=== PATIENT | female | born 1950 | race Caucasian/White ===

== ENCOUNTER → 2017-01-19 | Outpatient (CLI) | payer MEDICARE ==
--- NOTE | 2017-01-19 16:37 | US ---
EXAMINATION TYPE: US pelvis complete transvag DATE OF EXAM: 01/19/2017 4:25 PM COMPARISON: NONE CLINICAL HISTORY: Post menopausal bleeding N95.0. Episode of vaginal bleeding 1 month ago, prior c-se ction TECHNIQUE: Transvaginal (TV) and Transabdominal (TA) Date of LMP: unknown EXAM MEASUREMENTS: Uterus: 11.4 x 4.5 x 5.4 cm Endometrial Stripe: 2.7 cm Right Ovary: 2.4 x 1.4 x 1.8 cm Left Ovary: 2.8 x 1.2 x 2.3 cm 1. Uterus: Anteverted heterogeneous 2. Endometrium: thickened, heterogeneous, anechoic areas noted within 3. Right Ovary: appears wnl 4. Left Ovary: appears wnl 5. Bilateral Adnexa: appears wnl 6. Posterior cul-de-sac: appears wnl Uterus is heterogeneous in appearance and anteverted in shape. Endometrium is heterogeneous and marke dly thickened up to 2.2 cm on transabdominal imaging and 2.7 cm on transvaginal imaging. No free flui d is seen in pelvic cul-de-sac. Small ovaries are identified bilaterally consistent with patient's postmenopausal age. No suspicious adnexal masses seen. IMPRESSION: Heterogeneous thickened endometrium in patient with postmenopausal bleeding, neoplasm nee ds to BE excluded, further investigation with endometrial biopsy is advised. A Yellow message has been communicated to Lloyd Boyer DO via the [employer] Critical Result system on 01/19/2017 4:35 PM, Message ID [id number].
== END ==
LOC: RADUSMAIN 15:38
PROVIDERS: ATTEND Obstetrics & Gynecology
DX: N95.0 Postmenopausal bleeding (principal); R93.8 Abnormal findings on diagnostic imaging of other specified body structures
CPT/HCPCS: 76830; 76856

== ENCOUNTER → 2017-02-26 | Outpatient (CLI) | payer MEDICARE ==
[2017-02-26 09:46] LABS: Basophils % (A) 1 %; CH 29.6; CHCM 32.8; Eosinophils # (A) 0.2 k/uL (0-0.7); Eosinophils % (A) 3 %; HCT 43.3 % (34.0-46.0); HDW 2.38; HGB 14.4 gm/dL (11.4-16.0); Luc # (Auto) 0.18; Luc % (Auto) 3; Lymphocytes # (A) 2.5 k/uL (1.0-4.8); Lymphocytes % (A) 34 %; MCH 30.2 pg (25.0-35.0); MCHC 33.3 g/dL (31.0-37.0); MCV 90.7 fL (80.0-100.0); Mean Platelet Volume 6.8; Monocytes # (A) 0.5 k/uL (0-1.0); Monocytes % (A) 6 %; Neutrophils # (A) 3.9 k/uL (1.3-7.7); Neutrophils % (A) 53 %; RBC 4.77 m/uL (3.80-5.40); RDW 13.4 % (11.5-15.5); WBC 7.3 k/uL (3.8-10.6); WBC (Perox) 7.18
== END | disposition home or self-care (01) ==
LOC: LABPAT 09:22
PROVIDERS: ATTEND Obstetrics & Gynecology
DX: Z01.818 Encounter for other preprocedural examination (principal)
CPT/HCPCS: 85025

== ENCOUNTER 2017-03-06 06:15 | Day surgery (SDC) | payer MEDICARE ==
[2017-02-28 15:13] VITALS: BMI 35.6
[~2017-03-06 06:15] MED LIST: DEXAMETHASONE SOD PHOSPHATE 10 MG/ML 1 ML VIAL IV ONE; LACTATED RINGERS 1,000 ML IV SCH; MIDAZOLAM 2 MG/2 ML VIAL IV PRN; ONDANSETRON 4 MG/2 ML VIAL IVP ONE; Pre Op ABX Message 1 EACH MISC MISCELLANE ONE
--- NOTE | 2017-03-06 07:32 | P.HPOB ---
History of Present Illness H&P Date: 03/06/17 Chief Complaint: Postmenopausal bleeding Tamiko is a 66-year-old female began having bleeding was a grossly thickened endometrium. Symptoms started last couple of months and been intermittent. Ultrasound done on 01/19/2017 which showed a thickened endometrium. She is therefore scheduled for a D&C with hysteroscopy. Risks/benefits/alternatives to this procedure were discussed with the patient in detail and all questions are answered for her prior to proceeding to the operating room. On physical exam this is an alert and oriented female whose HEENT is otherwise unremarkable. Heart regular, lungs clear, extremities without pain. Abdomen soft nontender positive bowel sounds are noted. Pelvic exam has been deferred to the operating room. Assessment postmenopausal bleeding. Plan D&C hysteroscopy. Past Medical History Past Medical History: Cancer, Hyperlipidemia, Hypertension Additional Past Medical History / Comment(s): hx colon cancer, hx skin cancer History of Any Multi-Drug Resistant Organisms: None Reported Past Surgical History: Bowel Resection, Section, Heart Catheterization With Stent Additional Past Surgical History / Comment(s): skin cancer removed from chest, one cardiac stent Past Anesthesia/Blood Transfusion Reactions: No Reported Reaction Date of Last Stent Placement:: 2009 Past Psychological History: No Psychological Hx Reported Smoking Status: Former smoker Past Alcohol Use History: None Reported Additional Past Alcohol Use History / Comment(s): quit smoking 2002, smoked for 20 yrs, 1 pack or less per day Past Drug Use History: None Reported - Past Family History Brother(s) Family Medical History: Cancer Medications and Allergies Home Medications Medication Instructions Recorded Confirmed Type Aspirin [Adult Low Dose Aspirin EC] 81 mg PO DAILY 02/28/17 02/28/17 History Atorvastatin Calcium [Lipitor] 10 mg PO HS 02/28/17 03/06/17 History Ergocalciferol (Vitamin D2) 50,000 unit PO MO 02/28/17 03/06/17 History [Vitamin D2] Isosorbide Mononitrate ER [Imdur] 15 mg PO DAILY 02/28/17 03/06/17 History Lisinopril [Zestril] 10 mg PO DAILY 02/28/17 03/06/17 History Allergies Allergy/AdvReac Type Severity Reaction Status Date / Time "pressur tape" AdvReac makes skin Uncoded 02/28/17 15:02 burn Exam Osteopathic Statement: *. No significant issues noted on an osteopathic structural exam other than those noted in the History and Physical/Consult. - Vital Signs Vital signs: Vital Signs Temp Pulse Resp BP Pulse Ox 03/06/17 06:41 97.8 F 79 16 190/87 97
[2017-03-06] MEDS ORDERED: LIDOCAINE 1% INJ 10MG/ML (20 ML MDV) ONE (07:41)
[2017-03-06] MEDS ORDERED: PROPOFOL 10 MG/ML 20 ML VIAL IV ONE (07:41)
[2017-03-06] MEDS ORDERED: KETOROLAC 30 MG/ML 1 ML VIAL ONE (07:41)
[2017-03-06] MEDS ORDERED: MIDAZOLAM 2 MG/2 ML VIAL ONE (07:41)
--- NOTE | 2017-03-06 08:12 | P.OP ---
Date of Procedure: 03/06/17 Preoperative Diagnosis: post menopausal bleeding Postoperative Diagnosis: same Procedure(s) Performed: D&C with hysteroscopy Anesthesia: ANNALISA Surgeon: Lloyd Boyer Estimated Blood Loss (ml): 5 Pathology: other (uterine curettings) Condition: stable Disposition: same day Operative Findings: large submucosal/mural fibroid. polyp noted and believed removed in total Description of Procedure: She was taken to the operating suite where a general anesthetic was found to be adequate. And draped in the normal sterile fashion and placed in the dorsal position. Initially a weighted speculum was inserted in the vagina and the anterior lip of the cervix was identified and grasped with a single-tooth tenaculum. Once this was accomplished cervix was dilated and camera was inserted. Large polyp was noted the endometrium as was a large fibroid. Fibroid was about 50% in the cavity but as she and I did not discuss resecting it was left alone. Camera was then removed and sharp curettings of the endometrium were obtained. Large polyp did come out during this process. We' ll await final tissue pathology. Once curettings were obtained camera was reinserted polyp was still noted to be there. All instruments were then removed. Sponge, lap, needle counts were all correct 2. And patient was taken to the recovery room in stable and satisfactory condition. Plan - Discharge Summary New Discharge Prescriptions: Ibuprofen [Motrin] 600 mg PO Q6HR PRN #30 tab PRN Reason: Pain Discharge Medication List Aspirin [Adult Low Dose Aspirin EC] 81 mg PO DAILY 02/28/17 [History] Atorvastatin Calcium [Lipitor] 10 mg PO HS 02/28/17 [History] Ergocalciferol (Vitamin D2) [Vitamin D2] 50,000 unit PO MO 02/28/17 [History] Isosorbide Mononitrate ER [Imdur] 15 mg PO DAILY 02/28/17 [History] Lisinopril [Zestril] 10 mg PO DAILY 02/28/17 [History] Ibuprofen [Motrin] 600 mg PO Q6HR PRN #30 tab 03/06/17 [Rx] Follow up Appointment(s)/Referral(s): Lloyd Boyer DO [Doctor of Osteopathic Medicine] - 2 Weeks Activity/Diet/Wound Care/Special Instructions: no heavy lifting, pelvic rest today. call for any high tempratures, heavy bleeding, or severe pain Discharge Disposition: HOME SELF-CARE
[2017-03-06 08:23] VITALS: TEMP 97
[2017-03-06] MEDS ORDERED: HYDROmorphone 1 MG/ML 1 ML SYRINGE IVP ONE ×2 (08:28→08:35)
[2017-03-06 09:33] VITALS: BP 138/72; PULSE 64; RESP 18
== END 2017-03-06 09:34 | disposition home or self-care (01) ==
LOC: OR 06:15
PROVIDERS: ATTEND Obstetrics & Gynecology
DX: N95.0 Postmenopausal bleeding (principal); N85.01 Benign endometrial hyperplasia; Z87.891 Personal history of nicotine dependence; I10 Essential (primary) hypertension; E78.5 Hyperlipidemia, unspecified; Z85.038 Personal history of other malignant neoplasm of large intestine; Z85.828 Personal history of other malignant neoplasm of skin; I25.10 Atherosclerotic heart disease of native coronary artery without angina pectoris; I25.2 Old myocardial infarction; Z95.5 Presence of coronary angioplasty implant and graft; Z79.82 Long term (current) use of aspirin; Z79.899 Other long term (current) drug therapy
CPT/HCPCS: 88305; 58558; J2250; J1100; J2405; J2001; J1885; J1170; J2704

== ENCOUNTER → 2017-06-14 | Outpatient (CLI) | payer MEDICARE ==
[2017-06-14 12:16] LABS: Basophils % (A) 0 %; CH 29.3; CHCM 34.2; Eosinophils # (A) 0.2 k/uL (0-0.7); Eosinophils % (A) 3 %; HCT 43.5 % (34.0-46.0); HDW 2.45; HGB 15.2 gm/dL (11.4-16.0); Luc # (Auto) 0.14; Luc % (Auto) 2; Lymphocytes # (A) 2.3 k/uL (1.0-4.8); Lymphocytes % (A) 34 %; MCH 30.1 pg (25.0-35.0); MCV 86.1 fL (80.0-100.0); Mean Platelet Volume 7.3; Monocytes # (A) 0.3 k/uL (0-1.0); Monocytes % (A) 5 %; Neutrophils # (A) 3.6 k/uL (1.3-7.7); Neutrophils % (A) 56 %; RBC 5.06 m/uL (3.80-5.40); RDW 12.5 % (11.5-15.5); WBC 6.5 k/uL (3.8-10.6); WBC (Perox) 6.73
== END | disposition home or self-care (01) ==
LOC: LABPAT 11:28
PROVIDERS: ATTEND Obstetrics & Gynecology
DX: Z01.812 Encounter for preprocedural laboratory examination (principal)
CPT/HCPCS: 85025

== ENCOUNTER 2017-06-26 06:22 | Day surgery (SDC) | payer MEDICARE ==
[2017-06-19 10:09] VITALS: BMI 36.6
[~2017-06-26 06:22] MED LIST changes: +HYDROmorphone 1 MG/ML 1 ML SYRINGE IVP PRN; +LIDOCAINE 1% 20 ML VIAL (10MG/ML) FOR IV START INTRADERMA PRN; -MIDAZOLAM 2 MG/2 ML VIAL IV PRN; +SCOPOLAMINE 1.5MG/72HR PATCH TRANSDERM ONE
[2017-06-26] MEDS ORDERED: LACTATED RINGERS 1,000 ML IV ONE (06:43)
--- NOTE | 2017-06-26 07:24 | P.HPOB ---
History of Present Illness H&P Date: 06/26/17 Chief Complaint: Simple hyperplasia Tamiko is a 14-year-old female who had simple hyperplasia. She was treated with Provera for the last 3 months and is here for rebiopsy to verify resolution. Risks/benefits discussed with patient in detail and all questions were answered for her prior to proceeding to the operative room. On physical exam vital signs are stable and afebrile. Heart regular, lungs clear, extremities without pain. Pelvic exams unremarkable. Assessment simple hyperplasia. Plan D&C Past Medical History Past Medical History: Hyperlipidemia, Hypertension History of Any Multi-Drug Resistant Organisms: None Reported Past Surgical History: Bowel Resection, Heart Catheterization With Stent Additional Past Surgical History / Comment(s): d&c Past Anesthesia/Blood Transfusion Reactions: No Reported Reaction Date of Last Stent Placement:: 2009 Smoking Status: Former smoker - Past Family History Mother Family Medical History: No Reported History Medications and Allergies Home Medications Medication Instructions Recorded Confirmed Type Aspirin [Adult Low Dose Aspirin EC] 81 mg PO DAILY 02/28/17 06/19/17 History Atorvastatin Calcium [Lipitor] 10 mg PO HS 02/28/17 06/19/17 History Ergocalciferol (Vitamin D2) 50,000 unit PO MO 02/28/17 06/19/17 History [Vitamin D2] Isosorbide Mononitrate ER [Imdur] 15 mg PO DAILY 02/28/17 06/19/17 History Lisinopril [Zestril] 10 mg PO DAILY 02/28/17 06/19/17 History Allergies Allergy/AdvReac Type Severity Reaction Status Date / Time "pressur tape" AdvReac makes skin Uncoded 06/19/17 09:55 burn Exam Osteopathic Statement: *. No significant issues noted on an osteopathic structural exam other than those noted in the History and Physical/Consult. - Vital Signs Vital signs: Vital Signs Temp Pulse Resp BP Pulse Ox 06/26/17 06:40 98.2 F 77 18 150/77 97
[2017-06-26] MEDS ORDERED: fentaNYL (PF) 50 MCG/ML 2 ML AMP ONE (07:37)
[2017-06-26] MEDS ORDERED: KETOROLAC 30 MG/ML 1 ML VIAL ONE (07:37)
[2017-06-26] MEDS ORDERED: MIDAZOLAM 2 MG/2 ML VIAL ONE (07:37)
[2017-06-26] MEDS ORDERED: PROPOFOL 10 MG/ML 20 ML VIAL IV ONE (07:37)
[2017-06-26] MEDS ORDERED: LIDOCAINE 1% INJ 10MG/ML (20 ML MDV) ONE (07:37)
--- NOTE | 2017-06-26 07:58 | P.OP ---
Date of Procedure: 06/26/17 Preoperative Diagnosis: Simple hyperplasia Postoperative Diagnosis: Same Procedure(s) Performed: Dilation and curettage Implants: Anesthesia: GETA Surgeon: Lloyd Boyer Estimated Blood Loss (ml): 3 Pathology: other (Uterine curettings) Condition: stable Disposition: same day Indications for Procedure: Operative Findings: Tissue pathology pending. Scant tissue returned essentially what I would expect for status post Provera treatment Description of Procedure: Patient was taken to the operating suite where a general anesthetic was found be adequate. She was prepped and draped in the normal sterile fashion placed in dorsal lithotomy position. Initially a weighted speculum was inserted into the vagina and an Allis clamp was used to grasp the anterior cervix. Cervix was then dilated and sharp curettings of the endometrium were obtained. Very scant tissue returned consistent with Provera treatment. We'll have her follow up with me in 1-2 weeks for review of pathology. Otherwise once tissues collected instruments were removed sponge lap needle counts correct and patient was taken to the recovery room in stable condition. Plan - Discharge Summary New Discharge Prescriptions: No Action Isosorbide Mononitrate ER [Imdur] 15 mg PO DAILY Aspirin [Adult Low Dose Aspirin EC] 81 mg PO DAILY Lisinopril [Zestril] 10 mg PO DAILY Atorvastatin Calcium [Lipitor] 10 mg PO HS Ergocalciferol (Vitamin D2) [Vitamin D2] 50,000 unit PO MO Discharge Medication List Aspirin [Adult Low Dose Aspirin EC] 81 mg PO DAILY 02/28/17 [History] Atorvastatin Calcium [Lipitor] 10 mg PO HS 02/28/17 [History] Ergocalciferol (Vitamin D2) [Vitamin D2] 50,000 unit PO MO 02/28/17 [History] Isosorbide Mononitrate ER [Imdur] 15 mg PO DAILY 02/28/17 [History] Lisinopril [Zestril] 10 mg PO DAILY 02/28/17 [History] Follow up Appointment(s)/Referral(s): Lloyd Boyer DO [Doctor of Osteopathic Medicine] - 1 Week Activity/Diet/Wound Care/Special Instructions: Limited driving today pelvic rest. No heavy lifting today. If any high temperatures, heavy bleeding, or severe pain call my office
[2017-06-26 08:08] VITALS: TEMP 96.8
[2017-06-26 08:45] VITALS: RESP 20
[2017-06-26 09:01] VITALS: BP 126/60; PULSE 61
== END 2017-06-26 09:11 | disposition home or self-care (01) ==
LOC: OR 06:22
PROVIDERS: ATTEND Obstetrics & Gynecology
DX: N85.01 Benign endometrial hyperplasia (principal); E78.5 Hyperlipidemia, unspecified; I10 Essential (primary) hypertension; I25.10 Atherosclerotic heart disease of native coronary artery without angina pectoris; Z95.5 Presence of coronary angioplasty implant and graft; Z87.891 Personal history of nicotine dependence; Z79.82 Long term (current) use of aspirin; Z79.899 Other long term (current) drug therapy
CPT/HCPCS: 88305; 58120; J2250; J1100; J2405; J2001; J3010; J1885; J2704

== ENCOUNTER 2022-04-13 10:29 | Emergency (ER) | payer MEDICARE ==
[2022-04-13 10:36] VITALS: RESP 18; TEMP 98
[2022-04-13] MEDS ORDERED: LABETALOL 5 MG/ML VIAL MDV IVP STA (11:37)
[2022-04-13 12:15] LABS: Basophils % (A) 1 %; Eosinophils # (A) 0.1 k/uL (0-0.7); Eosinophils % (A) 1 %; HCT 49.2 % (34.0-46.0); HGB 16.3 gm/dL (11.4-16.0); Lymphocytes # (A) 1.9 k/uL (1.0-4.8); Lymphocytes % (A) 33 %; MCH 30.1 pg (25.0-35.0); MCHC 33.2 g/dL (31.0-37.0); MCV 90.5 fL (80.0-100.0); Mean Platelet Volume 7.2; Monocytes # (A) 0.3 k/uL (0-1.0); Monocytes % (A) 6 %; Neutrophils # (A) 3.3 k/uL (1.3-7.7); Neutrophils % (A) 58 %; Platelet Count 222 k/uL (150-450); RBC 5.44 m/uL (3.80-5.40); RDW 13.1 % (11.5-15.5); WBC 5.7 k/uL (3.8-10.6)
[2022-04-13 12:38] LABS: Appearance,Urine Clear (Clear); Bilirubin,Urine Negative (Negative); Blood,Urine Negative (Negative); Color,Urine Yellow; Glucose,Urine (UA) Negative (Negative); Ketones,Urine Negative (Negative); Leukocyte Esterase,Urine Negative (Negative); Nitrite,Urine Negative (Negative); Protein,Urine Negative (Negative); Specific Gravity,Urine 1.011 (1.001-1.035); Urobilinogen,Urine <2.0 mg/dL (<2.0)
[2022-04-13 12:45] LABS: Albumin 4.2 g/dL (3.5-5.0); Calcium 10.3 mg/dL (8.4-10.2); Potassium 4.5 mmol/L (3.5-5.1); Total Bilirubin 0.6 mg/dL (0.2-1.3); Total Protein 7.7 g/dL (6.3-8.2)
--- NOTE | 2022-04-13 12:57 | XR ---
EXAMINATION TYPE: XR chest 2V DATE OF EXAM: 04/13/2022 COMPARISON: 01/02/2012 HISTORY: 71-year-old female severe hypertension TECHNIQUE: PA and lateral views FINDINGS: Heart limits of normal in size. Aorta and pulmonary vasculature within normal limits. Mild interstiti al prominence is unchanged. Consolidation or pleural effusion. IMPRESSION: Chronic changes. No acute process seen.
--- NOTE | 2022-04-13 12:58 | ED ---
Recheck HPI - General Chief Complaint: Recheck/Abnormal Lab/Rx Stated Complaint: Hypertension/Sent by PCP Time Seen by Provider: 04/13/22 11:20 Source: patient Mode of arrival: ambulatory Limitations: no limitations - History of Present Illness Initial Comments: Patient is a 71-year-old female who presents to the emergency department for evaluation of high blood pressure. Patient states she presented for second cataract surgery yesterday however the surgery was rescheduled due to her blood pressure being > 200/100. Patient was told that she needed better blood pressure control in order to have the surgery. She does have history of hypertension however states she has not taken medication in years. Patient states she contacted Dr. Ceballos but he is out of town. Patient has no concerns at this time including headache, dizziness, lightheadedness, visual symptoms, shortness of breath, cough, chest pain, abdominal pain, nausea, and vomiting. - Related Data Home Medications Medication Instructions Recorded Confirmed Aspirin [Adult Low Dose Aspirin EC] 81 mg PO DAILY 02/28/17 06/19/17 Atorvastatin Calcium [Lipitor] 10 mg PO HS 02/28/17 06/19/17 Ergocalciferol (Vitamin D2) 50,000 unit PO MO 02/28/17 06/19/17 [Vitamin D2] Isosorbide Mononitrate ER [Imdur] 15 mg PO DAILY 02/28/17 06/19/17 lisinopriL [Zestril] 10 mg PO DAILY 02/28/17 06/19/17 Previous Rx's Medication Instructions Recorded lisinopriL [Prinivil] 10 mg PO DAILY #14 tab 04/13/22 Allergies Allergy/AdvReac Type Severity Reaction Status Date / Time "pressur tape" AdvReac makes skin Uncoded 04/13/22 10:36 burn Review of Systems ROS Statement: Those systems with pertinent positive or pertinent negative responses have been documented in the HPI. ROS Other: All systems not noted in ROS Statement are negative. Past Medical History Past Medical History: Unable to Obtain Past Surgical History: Bowel Resection, Heart Catheterization With Stent Additional Past Surgical History / Comment(s): cataract sx Past Psychological History: No Psychological Hx Reported Smoking Status: Never smoker Past Alcohol Use History: None Reported Past Drug Use History: None Reported General Exam Limitations: no limitations General appearance: alert, in no apparent distress Head exam: Present: atraumatic, normocephalic, normal inspection Eye exam: Present: EOMI. Absent: normal appearance (right pupil dilated due to dilation pre-surgery yesterday ) Neck exam: Present: normal inspection Respiratory exam: Present: normal lung sounds bilaterally. Absent: respiratory distress, wheezes, rales, rhonchi, stridor Cardiovascular Exam: Present: regular rate, normal rhythm, normal heart sounds. Absent: systolic murmur, diastolic murmur, rubs, gallop, clicks, JVD, S3, S4 GI/Abdominal exam: Present: soft, normal bowel sounds. Absent: distended, tenderness, guarding, rebound, rigid Neurological exam: Present: alert, oriented X3, CN II-XII intact Psychiatric exam: Present: normal affect, normal mood Skin exam: Present: warm, dry, intact, normal color. Absent: rash Course Vital Signs 04/13/22 04/13/22 04/13/22 10:31 11:55 12:50 Temperature 98.0 F Pulse Rate 94 78 61 Pulse Rate [ 75 Slasher Operator ] Respiratory 18 18 18 Rate Blood Pressure 222/94 225/105 188/78 O2 Sat by Pulse 96 95 96 Oximetry 04/13/22 13:02 Temperature 98.0 F Pulse Rate 59 L Pulse Rate [ Slasher Operator ] Respiratory 18 Rate Blood Pressure 168/70 O2 Sat by Pulse 96 Oximetry Medical Decision Making - Medical Decision Making This is a 71-year-old who presents for evaluation of blood pressure. Thorough history and examination were performed. Blood pressure is 222/94. Patient is asymptomatic. I will assess for end organ damage and control pressure. Laboratory studies are relatively unremarkable. EKG shows normal sinus rhythm with no ST or T-wave abnormalities. Chest x-ray shows no acute process. Blood pressure controlled with labetalol. Based on previous documentation patient was previously prescribed lisinopril 10 mg. I will send her home with a two-week prescription. Patient is instructed that it is very important to schedule an appointment with Dr. Ceballos for further evaluation and management of her blood pressure. Return parameters discussed. Patient verbalizes understanding and is agreeable to this plan. Dr. Wells is my attending. - Lab Data Result diagrams: 04/13/22 12:00 04/13/22 12:00 Lab Results 06/16/22 06/16/22 06/16/22 Range/Units 12:00 12:00 12:00 WBC 5.7 (3.8-10.6) k/uL RBC 5.44 H (3.80-5.40) m/uL Hgb 16.3 H (11.4-16.0) gm/dL Hct 49.2 H (34.0-46.0) % MCV 90.5 (80.0-100.0) fL MCH 30.1 (25.0-35.0) pg MCHC 33.2 (31.0-37.0) g/dL RDW 13.1 (11.5-15.5) % Plt Count 222 (150-450) k/uL MPV 7.2 Neutrophils % 58 % Lymphocytes % 33 % Monocytes % 6 % Eosinophils % 1 % Basophils % 1 % Neutrophils # 3.3 (1.3-7.7) k/uL Lymphocytes # 1.9 (1.0-4.8) k/uL Monocytes # 0.3 (0-1.0) k/uL Eosinophils # 0.1 (0-0.7) k/uL Basophils # 0.0 (0-0.2) k/uL Sodium 140 (137-145) mmol/L Potassium 4.5 (3.5-5.1) mmol/L Chloride 107 (98-107) mmol/L Carbon Dioxide 26 (22-30) mmol/L Anion Gap 7 mmol/L BUN 11 (7-17) mg/dL Creatinine 0.77 (0.52-1.04) mg/dL Est GFR (CKD-EPI)AfAm 89 (>60 ml/min/1.73 sqM) Est GFR (CKD-EPI)NonAf 77 (>60 ml/min/1.73 sqM) Glucose 122 H (74-99) mg/dL Calcium 10.3 H (8.4-10.2) mg/dL Total Bilirubin 0.6 (0.2-1.3) mg/dL AST 30 (14-36) U/L ALT 23 (4-34) U/L Alkaline Phosphatase 123 (38-126) U/L Total Protein 7.7 (6.3-8.2) g/dL Albumin 4.2 (3.5-5.0) g/dL Urine Color Yellow Urine Appearance Clear (Clear) Urine pH 7.0 (5.0-8.0) Ur Specific [place] 1.011 (1.001-1.035) Urine Protein Negative (Negative) Urine Glucose (UA) Negative (Negative) Urine Ketones Negative (Negative) Urine Blood Negative (Negative) Urine Nitrite Negative (Negative) Urine Bilirubin Negative (Negative) Urine Urobilinogen <2.0 (<2.0) mg/dL Ur Leukocyte Esterase Negative (Negative) Disposition Clinical Impression: Hypertension Disposition: HOME SELF-CARE Condition: Good Instructions (If sedation given, give patient instructions): Hypertension (ED) Additional Instructions: Please take medication as directed. You will start your first dose tomorrow. P brendaase follow-up with Dr. Ceballos at earliest available appointment for further evaluation and management of your blood pressure. Return to the emergency department if you experience new, concerning, or worsening symptoms. Prescriptions: lisinopriL [Prinivil] 10 mg PO DAILY #14 tab Is patient prescribed a controlled substance at d/c from ED?: No Referrals: Maurice Ceballos MD [Primary Care Provider] - 1-2 days Time of Disposition: 12:58
[2022-04-13 13:04] VITALS: BP 168/70; PULSE 59
== END 2022-04-13 13:09 | disposition home or self-care (01) ==
LOC: EC 10:29
DX: I10 Essential (primary) hypertension (principal); Z88.9 Allergy status to unspecified drugs, medicaments and biological substances
CPT/HCPCS: 36415; 71046; 80053; 81003; 85025; 93005